=== PATIENT | female | born 1975 | race Caucasian/White ===

== ENCOUNTER → 2019-10-17 10:24 | Outpatient (CLI) | payer OTHER, SELFPAY ==
--- NOTE | 2019-10-17 10:24 | US_ITS ---
PROCEDURE: US TRANSVAGINAL CLINICAL INDICATION: Pelvic pain COMPARISON: No exams were available for comparison FINDINGS: The uterus is 8 x 4 x 6 cm with a combined endometrial thickness of 15 mm. The uterus is retroverted. No obvious uterine mass. The left ovary is 3 x 2 cm with an unremarkable appearance. The right ovary is 4 x 3 cm and contains several small follicles the largest at 14 mm. 1.8 cm hyperechoic area noted along the lower pole of the right ovary with increased blood flow peripherally and enhanced through transmission of sound and may represent a hemorrhagic cyst No cul-de-sac fluid evident. IMPRESSION: Thickened endometrium of 15 mm 1.8 cm complex nodule right ovary which may be due to a hemorrhagic ovarian cyst. Follow-up may confirm stability Dictated by: Foster Kwon MD 10/17/2019 18:13 Electronically signed by Foster Kwon MD in [place] 10/17/2019 18:13
== END ==
PROVIDERS: PCP Physician Assistant; Visit Provider Nurse Practitioner Obstetrics & Gynecology
DX: R10.2 Pelvic and perineal pain (principal)
CPT/HCPCS: 76830

== ENCOUNTER → 2020-06-12 13:48 | Outpatient (CLI) | payer OTHER, SELFPAY ==
--- NOTE | 2020-06-12 13:50 | CA_ITS ---
APPROVED REPORT EXAM: Comprehensive 2D, Doppler, and color-flow Echocardiogram Diamond Setter Apprentice: Tiffany Whaley CRT Ht: 4 ft 10 in Wt: 162lbs BSA: 1.67 BP: 150/66 mmHg Indications: Diabetes, CABG, stent, pre-op 2D Dimensions LVOT 1.36 cm (M/F) 1.5-2.5 M-Mode Dimensions RVDd 1.92 cm (0.9-2.6) LA Diam 3.30 cm (1.9-4.0) LVDd 3.78 cm (3.5-5.7) Ao Diam 2.64 cm (2.0-3.7) LVDs 2.27 cm (3.5-5.7) IVSd 1.19 cm (0.6-1.1) PWd 0.76 cm (0.6-1.1) EF (Teich) 71.40% FS 39.90% EDV (Teich) 61.20 mL ESV (Teich) 17.50 mL LV Diastology E Decel Time 140.00 (160-240 msec) E/A Ratio 1.06 Aortic Valve LVOT Max 154.00 (70-110 cm/s) LVOT VTI 28.38 cm AoV Peak Yariel. 177.00 (50-130 cm/s) AO Peak GR. 12.50 mmHg AO Mean GR. 7.30 (<5 mmHg) AO VTI 28.67 (18-25 cm) KEYA (VTI) 1.44 (2.5-4.5 cm2) Mitral Valve MV A Velocity 78.00 (40-130 cm/s) E/A Ratio 1.06 MV Decel. Time 140.00 (160-240 ms) Pulmonary Valve PV Peak Velocity 144.00 (50-150 cm/s) Tricuspid Valve TR P. Velocity 286.00 cm/s RAP Estimate 10.00 mmHg RVSP 42.70 mmHg Left Ventricle Left atrium is mildly enlarged, left ventricle is normal size, left ventricle wall thickness is upper limit of the normal, there is preserved left ventricular systolic function, visually estimated ejection fraction 55% with no regional wall motion abnormality, diastolic parameters are inconclusive. Right Ventricle Right atrium and right ventricle are normal size and contractility. Aortic Valve Aortic valve is minimally thickened and fibrosed, there is no aortic stenosis or aortic insufficiency. Mitral Valve Mitral valve is grossly normal, there is mild mitral regurgitation. Tricuspid Valve Tricuspid valve is grossly normal, there is mild tricuspid regurgitation, tricuspid regurgitation jet velocity is inadequate for calculation of the right ventricular systolic pressure. Pulmonic Valve Pulmonic valve is poorly visualized. Great Vessels Aortic root is normal size. Pericardium No significant pericardial effusion noted. Conclusion 1. Mildly enlarged left atrium, normal left ventricular size, visually estimated ejection fraction 55% with no regional wall motion abnormality, diastolic parameters are inconclusive. 2. Mild mitral and tricuspid regurgitation. 3. No significant pericardial effusion noted. Electronically signed by : Amandeep Patel, 06/12/2020 16:46:08
--- NOTE | 2020-06-12 15:00 | PC.NURSE ---
Complete PFT accomplished without incident. Albuterol 0.083% given via hand held nebulizer per written protocol, Pt tolerated tx well.
--- NOTE | 2020-06-12 16:07 | XR_ITS ---
PROCEDURE: XR CHEST 2V CLINICAL HISTORY: hx of high blood pressure Heart disease COMPARISON: No exams were available for comparison FINDINGS: Prior CABG. Normal heart size. The left hilum is slightly prominent nonspecific. Atelectatic or fibrotic changes are present within the lingula. Mild degenerative changes thoracic spine. IMPRESSION: Prior CABG with mild prominence of the left hilum and atelectatic or fibrotic change in the lingula. There are no previous studies available for comparison. Dictated by: Foster Kwon MD 06/12/2020 20:35 Foster Kwon MD in [place] 06/12/2020 20:35
== END ==
PROVIDERS: PCP Physician Assistant; Visit Provider Internal Medicine
DX: Z01.810 Encounter for preprocedural cardiovascular examination (principal); R06.00 Dyspnea, unspecified; R94.31 Abnormal electrocardiogram [ECG] [EKG]
CPT/HCPCS: 71046; 93306; 94726

== ENCOUNTER → 2020-06-13 09:02 | Outpatient (CLI) | payer OTHER, SELFPAY ==
[2020-06-13 10:22] LABS: Basophils # 0.1 K/mm3 (0-0.2); Basophils % 0.7 % (0.1-2.0); Eosinophils # 0.2 K/mm3 (0.0-0.4); Eosinophils % 2.4 % (0.1-12.0); Hematocrit 38.9 % (37.0-47.0); Hemoglobin 12.7 g/dL (12.2-16.2); Lymphocytes # 1.8 K/mm3 (0.7-4.5); Lymphocytes % 20.9 % (10-50); Mean Corpuscular HGB Conc 32.8 g/dL (31.8-35.4); Mean Corpuscular Hemoglobin 27.5 pg (27.0-31.2); Mean Corpuscular Volume 84.1 fl (81-99); Mean Platelet Volume 7.6 fl (7.4-10.4); Monocytes # 0.5 K/mm3 (0.1-1.0); Monocytes % 6.2 % (1.7-9.3); Neutrophils % 69.8 % (37.0-80.0); Platelet Count 313 K/mm3 (142-424); Red Blood Count 4.62 M/mm3 (4.20-5.40); Red Cell Distribution Width 16.8 % (11.5-17.5); White Blood Count 8.6 K/mm3 (4.8-10.8)
[2020-06-13 10:43] LABS: D-Dimer 1.22 ug/mL (0.0-0.5)
[2020-06-13 10:55] LABS: Chloride 106 mmol/L (98-107); Potassium 4.4 mmoL/L (3.5-5.1); Sodium 140 mmol/L (136-145)
[2020-06-13 10:57] LABS: Bilirubin,Unconjugated 0.9 mg/dL (0.0-1.1); Blood Urea Nitrogen 14 mg/dl (7-17); Estimated Glomerular Filt Rate 78 ml/min (>60); GFR (African American) 94 ML/MIN (>60)
[2020-06-13 10:58] LABS: Alanine Aminotransferase 27 U/L (12-78); Albumin Level 4.3 g/dl (3.5-5.0); Albumin/Globulin Ratio 1.5 (1.1-1.8); Alkaline Phosphatase 104 U/L (38-126); Anion Gap 13.4 mEq/L (5-15); Aspartate Amino Transferase 33 U/L (14-36); Bilirubin,Direct 0.2 mg/dl (0.0-0.4); Bilirubin,Indirect 0.9 mg/dL (0.0-0.9); Bilirubin,Total 1.1 mg/dl (0.2-1.3); Calcium 9.4 mg/dl (8.4-10.2); Carbon Dioxide 25 mmol/L (22.0-30.0); Chol/HDL Ratio 2.2 (1-3.5); Cholesterol 157 mg/dl (140-200); Globulin 2.9 g/dL (1.3-3.2); Glucose 111 mg/dl (74-100); HDL Cholesterol 73 mg/dl (40-60); Total Protein,Serum 7.2 g/dl (6.3-8.2); Triglycerides 108 mg/dl (30-150); VLDL Cholesterol 22 mg/dL (0-40)
[2020-06-13 11:07] LABS: NT Pro Brain Natriuretic Pep. 67.2 pg/mL (0-125)
[2020-06-13 11:09] LABS: Direct LDL Cholesterol 63.52 mg/dL (100-129)
[2020-06-13 11:11] LABS: Coronavirus 19 IgG Antibody Negative (Negative); Coronavirus 19 IgM Antibody Negative (Negative)
[2020-06-13 11:13] LABS: Free T4 (Free Thyroxine) 0.86 ng/dl (0.78-2.19)
[2020-06-13 11:29] LABS: Thyroid Stimulating Hormone 1.44 uIU/mL (0.465-4.68)
== END ==
PROVIDERS: Nurse Practitioner Obstetrics & Gynecology; Visit Provider Internal Medicine
DX: Z01.810 Encounter for preprocedural cardiovascular examination (principal); R06.00 Dyspnea, unspecified; R94.31 Abnormal electrocardiogram [ECG] [EKG]
CPT/HCPCS: 36415; 80053; 80061; 80076; 83880; 84439; 84443; 85025; 85378; 86328

== ENCOUNTER 2020-06-16 06:09 | Day surgery (SDC) | payer OTHER, SELFPAY ==
[2020-06-10 11:22] VITALS: BMI 32.5
[2020-06-16 06:23] LABS: HCG Qualitative, Serum Negative (Negative)
[2020-06-16 06:26] VITALS: BP 115/51; PULSE 65; RESP 18; TEMP 36.8; O2SAT 98
[2020-06-16 06:49] LABS: POC Glucose,Bedside 108 (70-110)
--- NOTE | 2020-06-16 07:11 | HMH.ANESCL ---
[facility] Anesthesia Checklist - Patient Identification Patient Identification: Arm Band - Structural Data Admitted From: Home Planned Operative Procedure/s: LAVH, Bilateral Salpingectomy Consent for Planned Operative Procedure(s) Verified: Yes Verified Documents: Surgical Consent, History and Physical - NPO Status Verified Time NPO: 00:00 - Additional verifications Anesthesia Reactions: No Hx Blood Transfusions: No Blood Transfusion Reaction: No - Airway Assessment C-Spine Mobility Assessed: Yes (mp2) TMJ Mobility Assessed: Yes Dentition: Good Dentition - Neurological Assessment Level of Consciousness: Awake, Alert - Anesthesia Plan Anesthesia Risk discussed: Yes Anesthesia Plan: Verified ASA Class: III Anesthesia Type: General [facility] History I have reviewed the patient's past medical history: Yes Medical History: Reports:: Coronary Artery Disease, Diabetes Mellitus Type 1, Hyperlipidemia, Hypertension, Transient Ischemic Attacks (TIA) (10/2019) Denies:: Cancer, Diabetes Mellitus Type 2, Internal Pacemaker, MRSA, Seizures *Have you ever received a pneumonia vaccine?: No *Have you received a flu vaccine this season?: No Other Medical History: Reports: Sinus Problems, Other. Denies: Blood Transfusion Reaction Anesthesia experience/problems:: nac Other Surgeries: Yes: Appendectomy, CABG, Cardiac Catheterization, Coronary Stent, , Open Heart Surgery, Sinus Surgery, Tubal Ligation. No: Pacemaker Amputation: No Fractures: No - *Social History Last grade of school completed: Some college Smoking Status: Never smoker Alcohol Intake: never Alcohol Intake Frequency:: other Substance Use Type: denies use *Occupational Status:: other Housing: house Household Members: spouse, children *Travel in the last 8 weeks: None Family Hx:: No significant family history HORTICULTURAL WORKER history: Tubal Ligation, Abnormal Uterine Bleeding
--- NOTE | 2020-06-16 07:24 | SUR.PREOP ---
0715- Dr Ferrara at instructing pt that he will cancel surgery due to her broken ankle/foot and sprain on other foot. She will need to be able to ambulate for recovery and it will be to difficult. Instructed pt to see orthopedist first and then will reschedule procedure. IV was dcd and 2x2 coban appplied to site. pt dressed and ambulated out of preop. with .
== END 2020-06-16 07:30 | disposition home or self-care (01) ==
LOC: OR 06:09
PROVIDERS: PCP Physician Assistant; Visit Provider Nurse Practitioner Obstetrics & Gynecology
PROC: 0UT9FZZ Resection of Uterus, Via Natural or Artificial Opening With Percutaneous Endoscopic Assistance (ICD-10-PCS; principal; 2020-06-16 07:30)
DX: Z53.8 Procedure and treatment not carried out for other reasons (principal)
CPT/HCPCS: 82962; 84703

== ENCOUNTER → 2020-07-05 07:47 | Outpatient (CLI) | payer OTHER, SELFPAY ==
[2020-07-05 08:57] LABS: HCG Qualitative, Serum Negative (Negative)
[2020-07-05 09:18] LABS: Coronavirus 19 IgG Antibody Negative (Negative); Coronavirus 19 IgM Antibody Negative (Negative)
== END ==
PROVIDERS: Visit Provider Nurse Practitioner Obstetrics & Gynecology
DX: Z01.818 Encounter for other preprocedural examination (principal); Z20.822 Contact with and (suspected) exposure to COVID-19; N92.0 Excessive and frequent menstruation with regular cycle; N94.6 Dysmenorrhea, unspecified; R10.2 Pelvic and perineal pain; R94.31 Abnormal electrocardiogram [ECG] [EKG]
CPT/HCPCS: 36415; 84703; 86328

== ENCOUNTER 2020-07-07 06:25 | Observation (INO) | payer OTHER, SELFPAY ==
[2020-07-01 12:31] VITALS: BMI 32.5
[2020-07-07] VITALS (21 sets, daily range): BP systolic 131–190; BP diastolic 49–85; PULSE 70–91; RESP 12–18; TEMP 36.5–43; O2SAT 92–98
[2020-07-07 06:43] LABS: Adenovirus,PCR Not Detected (NotDetected); Bordetella Pertussis Not Detected (NotDetected); Chlamydophila Pneumoniae, PCR Not Detected (NotDetected); Coronavirus 19, PCR Not Detected (NotDetected); Coronavirus 229E Not Detected (NotDetected); Coronavirus NL63 Not Detected (NotDetected); Coronavirus OC43 Not Detected (NotDetected); Coronovirus HKU1,PCR Not Detected (NotDetected); Human Metapneumovirus Not Detected (NotDetected); Influenza A, PCR Not Detected (NotDetected); Influenza AH1, 2009 Not Detected (NotDetected); Influenza AH1, PCR Not Detected (NotDetected); Influenza AH3,PCR Not Detected (NotDetected); Influenza B, PCR Not Detected (NotDetected); Mycoplasma Pneumoniae, PCR Not Detected (NotDetected); Parainfluenza 1, PCR Not Detected (NotDetected); Parainfluenza 2, PCR Not Detected (NotDetected); Parainfluenza 3, PCR Not Detected (NotDetected); Parainfluenza 4, PCR Not Detected (NotDetected); Respiratory Syncytial Virus Not Detected (NotDetected); Rhinovirus/Enterovirus Not Detected (NotDetected)
--- NOTE | 2020-07-07 07:36 | HMH.PHAINT ---
MEDICATION RECONCILIATION COMPLETED ON PATIENT USING EXTERNAL FILL HISTORY FROM PHARMACY AND LIST FROM CARDIOLOGY OFFICE. -MATA COREAD
--- NOTE | 2020-07-07 08:18 | HMH.ANESCL ---
[facility] Anesthesia Checklist - Structural Data Admitted From: Home Planned Operative Procedure/s: [facility] Consent for Planned Operative Procedure(s) Verified: Yes - Additional verifications Anesthesia Reactions: No Hx Blood Transfusions: No Blood Transfusion Reaction: No - Airway Assessment C-Spine Mobility Assessed: Yes TMJ Mobility Assessed: Yes Dentition: Good Dentition - Neurological Assessment Level of Consciousness: Awake, Alert, Appropriate - Anesthesia Plan Anesthesia Risk discussed: Yes Anesthesia Plan: Verified ASA Class: III Anesthesia Type: General [facility] History I have reviewed the patient's past medical history: Yes Medical History: Reports:: Coronary Artery Disease, Diabetes Mellitus Type 1, Hyperlipidemia, Hypertension, Transient Ischemic Attacks (TIA) (10/2019) Denies:: Cancer, Diabetes Mellitus Type 2, Internal Pacemaker, MRSA, Seizures *Have you ever received a pneumonia vaccine?: No *Have you received a flu vaccine this season?: No Other Medical History: Reports: Sinus Problems, Other. Denies: Blood Transfusion Reaction Anesthesia experience/problems:: none Other Surgeries: Yes: Appendectomy, CABG, Cardiac Catheterization, Coronary Stent, , Open Heart Surgery, Sinus Surgery, Tubal Ligation. 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
--- NOTE | 2020-07-07 10:02 | HMH.OPNOTE ---
Date of procedure: 07/07/20 Pre-op Diagnosis:: Menorrhagia, pelvic pain, dysmenorrhea Post-op Diagnosis:: Menorrhagia, pelvic pain, dysmenorrhea, pelvic peritoneal adhesions Procedure performed:: Laparoscopically assisted vaginal hysterectomy, bilateral salpingectomy, lysis of adhesions Surgeon:: Raza Ferrara MD MARINE ARCHITECT:: Reyes Gabriel Anesthesia: GETA Estimated blood loss (mL): 200 Clinical Note:: She is a 44-year-old lady who complains of severe pain with her periods. She also complained of very heavy periods. She has had 2 previous sections. After having discussed the risks and benefits we elected perform a laparoscopically assisted vaginal hysterectomy and bilateral salpingectomy. Operative findings:: She had an anteverted somewhat bulky uterus. The uterus itself was adherent to the anterior abdominal wall with a thick adhesion. There were also adhesions of the sigmoid colon to the pelvic sidewall in the deep pelvis. Ovaries and tubes appeared normal. The upper abdomen appeared normal. There was an adhesion of the distal cecum and ascending colon to the anterior abdominal wall. She did not complain of any discomfort here so we left this alone. Operative note:: She was taken to the operating room where general anesthesia was found be adequate. She was prepped and draped in normal sterile fashion in the semilithotomy position. A weighted speculum was placed in the vagina and the anterior lip of the cervix was grasped with a tenaculum. An acorn uterine manipulator was then placed within the cervical os. I then changed gloves. I injected 10 cc of 0.5% ropivacaine around the umbilicus and made a small incision within the umbilicus. I inserted a Veress needle into the abdominal cavity. The abdominal cavity was then insufflated with carbon dioxide gas to a pressure of 20 mmHg. I then inserted an 11 mm trocar under direct vision. She had extensive adhesions of the uterus to the anterior abdominal wall and I elected to take this down with harmonic scalpel. There were also adhesions of the sigmoid colon to the lateral pelvic sidewall and these were also taken down with harmonic scalpel. I injected through and through the pubic hairline, made a small incision here and inserted a 5 mm trocar under direct vision. I identified the inferior epigastric arteries on the left side, went lateral to these and injected through and through. I then made a small incision and inserted an 11 mm trocar under direct vision. A similar 11 mm trocar was placed on the right side. The left round ligament was then grasped and cut through with harmonic scalpel. This was followed by opening up the peritoneum anteriorly to the midline. I then grasped the tube on the left side and cut through this. This is followed by cutting through the left utero-ovarian ligament. I used Harmonic scalpel on the coagulation mode. I then took down the posterior aspect of the broad ligament to the level of the uterosacral ligament. I then skeletonized the uterine arteries on the left side and placed hemoclips on these. Using the harmonic scalpel on coagulation mode adjacent to the cervix I then took down these uterine arteries. I then further freed up the bladder anteriorly and laterally on the left side. I then turned my attention to the right side where I grasped the right round ligament. The right tube was adherent to the right pelvic sidewall and using harmonic scalpel I was able to free this up. I then cut through the right round ligament. I then took down the anterior peritoneum to the midline joining up with the other side. I further dissected the bladder off. The posterior aspect of the right broad ligament was then taken down with harmonic scalpel. I skeletonized the uterine arteries on the right side. I applied hemoclips to the uterine arteries and staying adjacent to the cervix on the right side I took down the uterine arteries with harmonic scalpel on
--- NOTE | 2020-07-07 10:07 | HMH.ANESI ---
[facility] Anesthesia Record Part I Intake, IV Amount: 1,500 Estimated blood loss (mL): 200 Urine output (mL): 200 Blood Pressure: 154/70 SaO2: 96 Pulse Rate: 84 Respiratory Rate: 12 Temperature: 98 F Patient is:: Awake, Stable Stable to PACU at:: 10:00
--- NOTE | 2020-07-07 10:20 | HMH.HP ---
*Admission Date: 07/07/20 *Chief complaint: Menorrhagia, pelvic pain, dysmenorrhea *History of present illness: She is a 44-year-old lady who complains of a longstanding history of heavy periods as well as severe pain with her periods and pelvic pain. She had an ultrasound that was essentially normal. She also has a longstanding history of diabetes and has had triple bypass surgery with stents placed. She has significant neuropathy in her feet. She was seen prior to surgery by her mattress packer as well as a second opinion with Dr. Fuller. She was cleared for surgery. Her ejection fraction was 55%. After having discussed the risks of surgery we elected to perform a laparoscopically assisted vaginal hysterectomy and bilateral salpingectomy for her menorrhagia and pelvic pain. [facility] History I have reviewed the patient's past medical history: Yes Medical History: Reports:: Coronary Artery Disease, Diabetes Mellitus Type 1, Hyperlipidemia, Hypertension, Transient Ischemic Attacks (TIA) (10/2019) Denies:: Cancer, Diabetes Mellitus Type 2, Internal Pacemaker, MRSA, Seizures *Have you ever received a pneumonia vaccine?: No *Have you received a flu vaccine this season?: No Other Medical History: Reports: Sinus Problems, Other. Denies: Blood Transfusion Reaction Anesthesia experience/problems:: none Other Surgeries: Yes: Appendectomy, CABG, Cardiac Catheterization, Coronary Stent, , Open Heart Surgery, Sinus Surgery, Tubal Ligation. No: Pacemaker Amputation: No Fractures: No - *Social History Last grade of school completed: Some college Smoking Status: Never smoker Alcohol Intake: never Alcohol Intake Frequency:: other Substance Use Type: denies use *Occupational Status:: other Housing: house Household Members: spouse, children *Travel in the last 8 weeks: None Family Hx:: No significant family history [employer] ST[employer] ARCHITECT history: Tubal Ligation, Abnormal Uterine Bleeding Review of Systems - Review of Systems Review of systems:: pertinent systems reviewed and negative unless documented below Meds Home Medications Medication Instructions Recorded Confirmed Type atorvastatin 80 mg tablet 80 mg PO DAILY 10/11/19 07/01/20 History gabapentin 600 mg tablet 600 mg PO BID tab 10/11/19 07/01/20 History ferrous sulfate 325 mg (65 mg 325 mg PO DAILY tab 05/19/20 07/01/20 History iron) tablet metoprolol tartrate 25 mg tablet 25 mg PO BID tab 05/19/20 07/07/20 History Vilazodone HCl [Viibryd 40mg 40 mg PO DAILY 06/10/20 07/01/20 History Tablet] furosemide 20 mg tablet 20 mg PO DAILY 06/12/20 07/01/20 History Aspirin [Aspirin 325mg Tab] 325 mg PO DAILY 06/16/20 07/01/20 History Insulin Glargine,Hum.rec.anlog 6 units SQ HS 06/16/20 07/07/20 History [Basaglar Radhaikpen U-100] Insulin Lispro [Admelog] 0 units SQ DIRECTED 07/07/20 07/07/20 History Allergies Allergy/AdvReac Type Severity Reaction Status Date / Time No Known Allergies Allergy Verified 06/16/20 06:21 Exam Vital signs and Labs for Last 24 Hours: Temp Pulse Resp BP Pulse Ox 98 F 84 12 154/70 H 98 07/07/20 10:07 07/07/20 10:07 07/07/20 10:07 07/07/20 10:07 07/07/20 06:36 Laboratory Results - last 24 hr 07/07/20 06:30: Chlamy pneumoniae PCR Not detected, Adenovirus (PCR) Not detected, B. pertussis DNA (PCR) Not detected, Coronavirus OC43 (PCR) Not detected, Coronavirus HKU1 (PCR) Not detected, Coronavirus 229E (PCR) Not detected, SARS-CoV-2 (PCR) Not detected, Coronavirus NL63 (PCR) Not detected, Human Metapneumovir PCR Not detected, Influenza A (H1) PCR Not detected, Influ A (H1N1/09) PCR Not detected, Influenza A (H3) PCR Not detected, Influenza Type A (PCR) Not detected, Influenza Type B (PCR) Not detected, M. pneumoniae (PCR) Not detected, Parainfluenza 1 (PCR) Not detected, Parainfluenza 2 (PCR) Not detected, Parainfluenza 3 (PCR) Not detected, Parainfluenza 4 (PCR) Not detected, RSV (PCR) Not detected, Entero/Rhino (PCR) Not detected I
--- NOTE | 2020-07-07 10:48 | P.CONPHA_ITS ---
[facility] Pharmacy VTE Monitoring - Patient Demographics Admission date: 07/07/20 Report Date: 07/07/20 Time: 10:48 Allergies/Adverse Reactions: Patient Allergies No Known Allergies Allergy (Verified 06/16/20 06:21) Height: 1.47 m Weight: 70.76 kg Patient Problems: Current Active Problems Menorrhagia (Acute) Dysmenorrhea (Acute) Pelvic pain (Acute) Dyspnea (Acute) Abnormal ECG (Acute) HLD (hyperlipidemia) (Acute) HTN (hypertension) (Acute) DM type 1 (diabetes mellitus, type 1) (Acute) History of coronary artery stent placement (Acute) History of coronary artery bypass graft (Acute) CAD (coronary artery disease) (Acute) - Prophylaxis VTE Prophylaxis Ordered?: Yes Types of VTE Prophylaxis: IPCS Thigh High, Pharmacological Location of Applied Device: Bilateral Lower Extremeties Pharmacologic Type: Enoxaparin
--- NOTE | 2020-07-07 10:51 | PC.NURSE ---
called, order given for pharmacy consult for medication reconciliation and diabetes.
--- NOTE | 2020-07-07 11:00 | PC.NURSE ---
Pt to room 279 via bed and PACU staff x2. Alert and Oriented x4, very cheerful and happy. Denies any pain or needs for pain medication at this time. Warm / [place]. Slight heart murmur noted. S/P open heart surgery 6months ago(3 bipass). Lungs clear. No edema. +BS x4 quads (normal active). 4 lap sites to abdomen (all CDI). No vaginal bleeding. SCDS in place bilat. VS WNL. Reyes cath in place to BSD drain, yellow urine noted in drainage bag. Pt is a brittle Type 1 Diabetic, dicussed pt's normal insulin / medication schedule...Pharmacy consult ordered. Denies any needs at this time. Denies any pain. at bs.
[2020-07-07 11:13] LABS: Microscopic,Cath URINE MICROSCOPIC (MICROSCOPIC)
[2020-07-07 11:20] LABS: Appearance,Urine/Cath CLEAR (Clear); Bilirubin,Cath Negative (Negative); Blood, Urine/Cath 1+ (Negative); Color,Urine/Cath YELLOW (Yellow); Glucose,Urine/Cath (UA) Negative (Negative); Ketones,Urine/Cath Negative (Negative); Leukocyte Esterase,Cath Negative (Negative); Nitrate,Cath Negative (Negative); Protein,Urine/Cath Negative (Negative); Urobilinogen,Cath 0.2 EU/dl (0.2)
--- NOTE | 2020-07-07 11:20 | PC.NURSE ---
Pt took FSBS for random level. Results (169)
--- NOTE | 2020-07-07 11:27 | PC.NURSE ---
Consult with pharmacist (Dre) about home meds.
--- NOTE | 2020-07-07 12:01 | HMH.PHAINT ---
PATIENT IS A TYPE 1 DIABETIC BUT WITH FRAGILE CONTROL. MD CONSULTED PHARMACY FOR PATIENT'S INSULIN REGIMEN. DISCUSSED THIS WITH PATIENT AND PATIENT'S . PATIENT TAKES ADMELOG (100 UNITS/ML) 1 UNIT PER 20 CARBS EATEN PER MEAL. PATIENT WILL BE COUNTING CARBS FOR DOSE.PATIENT ALSO TAKES FROM 6 TO 10 UNITS OF BASAGLAR 100 UNITS/ML AT BEDTIME BASED ON NIGHTTIME BS AND AMOUNT OF CARBS EATEN THAT DAY.
--- NOTE | 2020-07-07 12:21 | PC.NURSE ---
FSBS taken per pt. Results (231), given 5 units of her own insulin per pt. See Jul.
--- NOTE | 2020-07-07 13:15 | PC.NURSE ---
Random FSBS per pt, results (434), 13 additional units of pt's own insulin given per pt. See Mar.
[2020-07-07 14:56] LABS: POC Glucose,Bedside 131 (70-110)
--- NOTE | 2020-07-07 16:04 | PC.NURSE ---
Lab personnel at to draw blood.
[2020-07-07 16:21] LABS: Hematocrit 39.1 % (37.0-47.0)
--- NOTE | 2020-07-07 16:32 | HMH.ANESII ---
[facility] Anesthesia Record Part II Discharge Time: 10:30 Destination: Obstetric PACU nurse assessment reviewed?: Yes Patient Condition:: Good Anesthesia Complications:: None Swallowing reflex intact?: Yes Cyanosis?: No Blood Pressure: 148/75 Pulse Rate: 86 Temperature: 98 F Mental Status: Alert & Oriented Pain level:: 0 Nausea and/or vomitting:: None Intake, IV Amount: 0
--- NOTE | 2020-07-07 16:46 | PC.NURSE ---
Fingerstick bloodsugar taken per pt, results ( 331). Pt requests 10 units Admelog be given. See MAR.
--- NOTE | 2020-07-07 18:15 | PC.NURSE ---
Incentive Spirometer provided and usage explained. Verbalizes understanding. Has had to use one in the past. Pt also assisted up to the bathroom at this time. Urine specimen collection hat placed in toilet to measure first few voids. Ambulated to the bathroom without difficulty. Random FSBS taken by pt (401), 15 additional units of Admelog given per pts request.
--- NOTE | 2020-07-07 18:40 | PC.NURSE ---
Pt now sitting up in chair using incentive spirometer.
--- NOTE | 2020-07-07 18:53 | PC.NURSE ---
Report to TR Rinaldi
[2020-07-08] VITALS: BP 140/63; PULSE 77; RESP 17; O2SAT 95
[2020-07-08 04:00] VITALS: BP 139/70; PULSE 76; RESP 17; TEMP 36.8; O2SAT 97
--- NOTE | 2020-07-08 05:00 | PC.NURSE ---
PT HAS RESTED WELL THIS SHIFT. PT A&O X 4. VSS. HEART RATE REGULAR. PAIN WELL CONTROLLED. USING INCENTIVE SPIROMETER, LUNGS CTAB, BOWEL SOUNDS ACTIVE X 4 QUADS. PASSING FLATUS. PT VOIDING WITHOUT DIFFICULTY ABD SOFT, MILDLY TENDER, NO DISTENTION. LAP SITES X 4 COVERED WITH T&T. C/D/I. MINIMAL BRUISING NOTED TO SITES. IV PATENT. PT TOLERATING DIABETIC DIET. FSBS CONTROLLED WITH INSULIN PER PT'S USUAL REGIMEN. NO EDEMA.PT AMBULATES WELL TOLERATED. CALL LIGHT WITHIN REACH. WILL CONTINUE TO MONITOR
[2020-07-08 06:24] LABS: Basophils % 0.2 % (0.1-2.0); Eosinophils # 0.1 K/mm3 (0.0-0.4); Eosinophils % 0.8 % (0.1-12.0); Hematocrit 38.4 % (37.0-47.0); Hemoglobin 12.1 g/dL (12.2-16.2); Lymphocytes # 1.7 K/mm3 (0.7-4.5); Lymphocytes % 9.8 % (10-50); Mean Corpuscular HGB Conc 31.5 g/dL (31.8-35.4); Mean Corpuscular Hemoglobin 27.7 pg (27.0-31.2); Mean Corpuscular Volume 88.1 fl (81-99); Mean Platelet Volume 7.8 fl (7.4-10.4); Monocytes # 0.6 K/mm3 (0.1-1.0); Monocytes % 3.3 % (1.7-9.3); Neutrophils # 14.7 K/mm3 (1.8-7.8); Platelet Count 281 K/mm3 (142-424); Red Blood Count 4.36 M/mm3 (4.20-5.40); Red Cell Distribution Width 17.2 % (11.5-17.5); White Blood Count 17.1 K/mm3 (4.8-10.8)
[2020-07-08 06:31] LABS: Chloride 109 mmol/L (98-107)
[2020-07-08 06:32] LABS: Potassium 4.3 mmoL/L (3.5-5.1); Sodium 139 mmol/L (136-145)
[2020-07-08 06:34] LABS: Blood Urea Nitrogen 22 mg/dl (7-17); Creatinine Clearance Estimated 88 mL/min (50-200); Estimated Glomerular Filt Rate 68 ml/min (>60); GFR (African American) 82 ML/MIN (>60)
[2020-07-08 06:35] LABS: Anion Gap 5.3 mEq/L (5-15); Calcium 8.8 mg/dl (8.4-10.2); Carbon Dioxide 29 mmol/L (22.0-30.0); Glucose 80 mg/dl (74-100)
[2020-07-08 06:43] LABS: MANUAL DIFFERENTIAL MANUAL DIFFERENTIAL (MANUAL DIFF)
[2020-07-08 08:16] LABS: Lymphocytes % 11 % (10-50); Monocytes % 4 % (2-9); Neutrophils % 85 % (42-76); Total Cells Counted 100
[2020-07-08 08:17] LABS: Hypochromasia 1+; Platelet Estimate Normal
[2020-07-08 08:42] VITALS: BP 155/65; PULSE 76; RESP 18; TEMP 37.1; O2SAT 96
--- NOTE | 2020-07-08 09:04 | HMH.DCSUM ---
General - General Admission date:: 07/07/20 Discharge date: 07/08/20 HPI HPI: She is a 44-year-old lady who complains of a longstanding history of heavy periods as well as severe pain with her periods and pelvic pain. She had an ultrasound that was essentially normal. She also has a longstanding history of diabetes and has had triple bypass surgery with stents placed. She has significant neuropathy in her feet. She was seen prior to surgery by her master automotive technician as well as a second opinion with Dr. Fuller. She was cleared for surgery. Her ejection fraction was 55%. After having discussed the risks of surgery we elected to perform a laparoscopically assisted vaginal hysterectomy and bilateral salpingectomy for her menorrhagia and pelvic pain. Hospital Course Hospital Course: On July 07, 2020 she underwent a laparoscopic-assisted vaginal hysterectomy and bilateral salpingectomy. She had extensive adhesions of the uterus to the anterior abdominal wall as well as some adhesions of the sigmoid colon to the left lower quadrant. These were taken down at the time of her surgery. She has done well postoperatively and has remained afebrile throughout her hospitalization. She is eating and drinking and ambulating. She is voiding well. She has not had a bowel movement yet. Her pain is reasonably well controlled with oral analgesics. She will be discharged home to follow-up with me in approximately 2 weeks time. She will continue with her home medications. She was given a prescription for Percocet 5/325 number 20 tablets. She was given the usual instructions with respect to limiting her activity, driving and sexual activity. Her condition on discharge is stable and improved. Objective Vital signs: Temp Pulse Resp BP Pulse Ox 98.7 F 76 18 155/65 H 96 07/08/20 08:42 07/08/20 08:42 07/08/20 08:42 07/08/20 08:42 07/08/20 08:42 no acute distress - *Routine HEENT Exam Head: Present: normocephalic Eye: Present: EOMI, PERRL ENT: Present: mucous membranes moist - *Routine Neck Exam Present: supple - *Routine Respiratory Exam Present: CTA bilaterally - *Routine Cardiovascular Exam Present: RRR - *Routine Abdominal Exam Present: soft, normoactive bowel sounds. Absent: tenderness - *Routine Extremities Exam Absent: cyanosis, clubbing, edema Results Labs on day of discharge: Labs from last 24 hours 07/08/20 07/08/20 07/07/20 06:12 06:12 16:03 WBC 17.1 H RBC 4.36 Hgb 12.1 L 12.0 L Hct 38.4 39.1 MCV 88.1 MCH 27.7 MCHC 31.5 L RDW 17.2 Plt Count 281 MPV 7.8 Neut % (Auto) 86.0 H Lymph % (Auto) 9.8 L Gilliam % (Auto) 3.3 Eos % (Auto) 0.8 Baso % (Auto) 0.2 Neut # (Auto) 14.7 H Lymph # (Auto) 1.7 Gilliam # (Auto) 0.6 Eos # (Auto) 0.1 Baso # (Auto) 0.0 Total Counted 100 Neutrophils % (Manual) 85 H Lymphocytes % (Manual) 11 Monocytes % (Manual) 4 Platelet Estimate Normal Hypochromasia 1+ Sodium 139 Potassium 4.3 Chloride 109 H Carbon Dioxide 29 Anion Gap 5.3 BUN 22 H Creatinine 0.90 Estimated Creat Clear 88 Estimated GFR 68 Est GFR ( Amer) 82 Glucose 80 POC Glucose Calcium 8.8 Urine Color Urine Appearance Urine pH Ur Specific [place] Urine Protein Urine Glucose (UA) Urine Ketones Urine Blood Urine Nitrate Urine Bilirubin Urine Urobilinogen Ur Leukocyte Esterase Urine RBC Urine WBC Ur Squamous Epith Cells 07/07/20 07/07/20 09:45 06:50 WBC RBC Hgb Hct MCV MCH MCHC RDW Plt Count MPV Neut % (Auto) Lymph % (Auto) Gilliam % (Auto) Eos % (Auto) Baso % (Auto) Neut # (Auto) Lymph # (Auto) Gilliam # (Auto) Eos # (Auto) Baso # (Auto) Total Counted Neutrophils % (Manual) Lymphocytes % (Manual) Monocytes % (Manual) Platelet Estimate Hypochroma
--- NOTE | 2020-07-08 09:27 | INFXCTL.NOTE ---
0925 Discharge order has been placed by . IV removed, tolerated well by pt. Pt reports that her will not be here to get her for a little while. Pt reports that she is going to nap, room darkened.
--- NOTE | 2020-07-08 10:16 | PC.NURSE ---
1010 Discharge education provided to pt, questions encouraged and answered. Pt reports that her will be here to get her around 1230.
== END 2020-07-08 12:30 | disposition home or self-care (01) ==
LOC: OB 06:25
PROVIDERS: Admitting Provider Nurse Practitioner Obstetrics & Gynecology; PCP Physician Assistant; Visit Provider Nurse Practitioner Obstetrics & Gynecology
PROC: 0UT9FZZ Resection of Uterus, Via Natural or Artificial Opening With Percutaneous Endoscopic Assistance (ICD-10-PCS; CPT 58552; principal; 2020-07-07 07:30)
DX: N94.6 Dysmenorrhea, unspecified (principal); R10.2 Pelvic and perineal pain; N73.6 Female pelvic peritoneal adhesions (postinfective); N92.0 Excessive and frequent menstruation with regular cycle; Z79.4 Long term (current) use of insulin; E11.9 Type 2 diabetes mellitus without complications
CPT/HCPCS: 58552; 44180; 36415; 80048; 81001; 82962; 85007; 85014; 85018; 85025; 87581; 87633; 87798; 94761; 96374; G0283; G0378; J2405

== ENCOUNTER → 2021-09-29 12:03 | Outpatient (CLI) | payer MEDICARE, SELFPAY ==
[2021-09-29 13:09] LABS: Basophils # 0.1 K/mm3 (0-0.2); Basophils % 1.2 % (0.1-2.0); Eosinophils # 0.1 K/mm3 (0.0-0.4); Hematocrit 39.7 % (37.0-47.0); Hemoglobin 13.2 g/dL (12.2-16.2); Lymphocytes # 1.6 K/mm3 (0.7-4.5); Lymphocytes % 30.9 % (10-50); Mean Corpuscular HGB Conc 33.3 g/dL (31.8-35.4); Mean Corpuscular Hemoglobin 30.7 pg (27.0-31.2); Mean Corpuscular Volume 92.4 fl (81-99); Mean Platelet Volume 9.4 fl (7.4-10.4); Monocytes # 0.4 K/mm3 (0.1-1.0); Monocytes % 6.6 % (1.7-9.3); Neutrophils # 3.2 K/mm3 (1.8-7.8); Neutrophils % 59.4 % (37.0-80.0); Platelet Count 191 K/mm3 (142-424); Red Cell Distribution Width 13.7 % (11.5-17.5); White Blood Count 5.3 K/mm3 (4.8-10.8)
[2021-09-29 13:51] LABS: Anion Gap 8.5 mEq/L (5-15); Blood Urea Nitrogen 15 mg/dl (7-17); Calcium 8.6 mg/dl (8.4-10.2); Carbon Dioxide 27 mmol/L (22.0-30.0); Chloride 105 mmol/L (98-107); Estimated Glomerular Filt Rate 77 ml/min (>60); GFR (African American) 93 ML/MIN (>60); Glucose 201 mg/dl (74-100); Potassium 4.5 mmoL/L (3.5-5.1); Sodium 136 mmol/L (136-145)
== END ==
PROVIDERS: Nurse Practitioner; Visit Provider Internal Medicine
DX: E78.5 Hyperlipidemia, unspecified (principal); I10 Essential (primary) hypertension; I20.0 Unstable angina; R06.00 Dyspnea, unspecified; R94.31 Abnormal electrocardiogram [ECG] [EKG]; Z95.1 Presence of aortocoronary bypass graft; Z95.5 Presence of coronary angioplasty implant and graft; Z01.812 Encounter for preprocedural laboratory examination; Z11.52 Encounter for screening for COVID-19
CPT/HCPCS: 36415; 80048; 85025; C9803; U0003; U0005

== ENCOUNTER 2021-10-01 08:35 | Day surgery (SDC) | payer MEDICARE, MEDICAID, SELFPAY ==
[2021-10-01] VITALS (21 sets, daily range): BP systolic 94–149; BP diastolic 41–73; PULSE 50–55; RESP 16–18; TEMP 36.9; O2SAT 90–98; BMI 35.7
--- NOTE | 2021-10-01 07:16 | IR_ITS ---
APPROVED REPORT Patient Location: Outpatient PROCEDURES Left heart catheterization Left ventriculogram Selective coronary angiogram Selective engagement of the left internal mammary artery Selective engagement of saphenous vein graft to the ramus intermedius INDICATION Coronary artery disease, History of coronary bypass surgery, Accelerated angina pectoris Informed consent was obtained prior to the procedure. COMPLICATIONS NONE Estimated Blood Loss: LESS THAN 10 ML TECHNIQUE One percent lidocaine used to anesthetize the right groin. The right femoral artery was accessed via the Seldinger technique and a 5 [place] sheath was placed in the right femoral artery. A JL 4, JR4 catheter were used to perform left heart catheterization, left ventriculogram selective coronary angiography as well as selective engagement of the 1 vein graft and the left internal mammary artery. At the end of the procedure the patient was transferred to the postop holding area in stable condition for sheath removal. ANGIOGRAPHIC RESULTS The left main artery Normal The left anterior descending artery Has proximal and mid vessel 10% luminal irregularities while the mid LAD is occluded. The circumflex artery Is a small caliber nondominant vessel with a proximal 30 to 40% eccentric stenosis with additional 20 and 30% mid vessel stenoses. The maximum diameter of the circumflex artery is 2.25 mm The right coronary artery Is a dominant vessel yet still small caliber and has mild diffuse 10% luminal irregularities while the distal vessels are abnormally small and appear to be diffusely vasculopathic with no focal stenosis The CONN ventriculogram reveals Preserved at 55% The left ventricular end-diastolic pressure 10 mmHg [place] to LAD is a small graft which is patent however accompanied by slower flow and then makes an anastomosis onto a small caliber diffusely diseased mid LAD. The LAD is no greater than 1.5 mm Saphenous vein graft to ramus intermedius is small in caliber not greater than 1 to 1.5 mm in diameter and is accompanied by slow flow to a moderate sized ramus IMPRESSION Coronary artery disease as described above Preserved ejection fraction Normal left ventricular end-diastolic pressure PLAN 1. Aggressive risk factor modification 2. Maximize antianginal medications such as nitrates and Ranexa. Patient has small vessel diffuse vasculopathy with none of her coronary artery disease and minimal to percutaneous revascularization 3. LDL less than 55 to be achieved with high intensity statin Electronically signed by : Rah Fuller MD 10/01/2021 09:59:20
== END 2021-10-01 13:26 | disposition home or self-care (01) ==
LOC: CATHLAB 08:39
PROVIDERS: PCP Nurse Practitioner Family; Visit Provider Internal Medicine
DX: E78.5 Hyperlipidemia, unspecified (principal); I10 Essential (primary) hypertension; I25.110 Atherosclerotic heart disease of native coronary artery with unstable angina pectoris; R06.00 Dyspnea, unspecified; R94.31 Abnormal electrocardiogram [ECG] [EKG]; Z95.1 Presence of aortocoronary bypass graft; Z95.5 Presence of coronary angioplasty implant and graft; E11.9 Type 2 diabetes mellitus without complications; Z79.4 Long term (current) use of insulin; Z79.899 Other long term (current) drug therapy
CPT/HCPCS: 93459; 99152; C1725; C1769; C1894; J1644; Q9967